=== PATIENT | female | born 1980 | race African-American/Black ===

== ENCOUNTER 2021-02-06 09:27 | Outpatient (CLI) | payer BC | END 2021-02-06 09:28 | disposition home or self-care (01) | LOC: BICMAMMO 09:27 | PROVIDERS: ATTEND Family Medicine | DX: Z12.31 Encounter for screening mammogram for malignant neoplasm of breast (principal); R92.1 Mammographic calcification found on diagnostic imaging of breast; N63.10 Unspecified lump in the right breast, unspecified quadrant | CPT/HCPCS: 77063; 77067 ==

== ENCOUNTER 2021-02-24 07:03 | Outpatient (CLI) | payer BC | END 2021-02-24 07:04 | disposition home or self-care (01) | LOC: BICULT 07:03 | PROVIDERS: ATTEND Family Medicine | DX: Z01.818 Encounter for other preprocedural examination (principal); K42.9 Umbilical hernia without obstruction or gangrene; R07.9 Chest pain, unspecified | CPT/HCPCS: 71046; 76705 ==